=== PATIENT | male | born 1995 | race Caucasian/White ===

== ENCOUNTER 2023-09-27 13:56 | Outpatient (CLI) | payer OTHER, SELFPAY ==
--- NOTE | 2023-09-28 10:25 | WPDPFTINT ---
PFT Procedure Performed PFT Procedure Performed Spirometry with Pre/Post Bronchodilator Plethysmography (Lung Vol) Diffusing Cap (DLCO) Flow Vol Loop PFT Interpretation Lung volumes were measured with the body plethysmography method. Lung volumes are unremarkable. Spirometry showed normal expiratory flow rates and a normal FEV1 to FVC ratio of 90%. Following administration of a bronchodilator there was no significant increase in the expiratory flow rates. Lung diffusion capacity is within the normal range at 85% predicted. The flow-volume loop is unremarkable. Impression: Spirometry, lung volumes, and lung diffusion capacity all within the normal range.
== END 2023-09-27 13:57 | disposition home or self-care (01) ==
LOC: ANHPFT 13:57
PROVIDERS: PCP Family Medicine
DX: J45.909 Unspecified asthma, uncomplicated (principal)
CPT/HCPCS: 94060; 94726; 94729

== ENCOUNTER 2023-10-10 12:44 | Outpatient (CLI) | payer OTHER, SELFPAY ==
--- NOTE | 2023-10-10 16:15 | P.METCHAL_ITS ---
Methacholine Procedure Perform Procedure Performed Methacholine Challenge Methacholine Challenge Methacholine Challenge: This is a methacholine challenge test. The test was performed and interpreted in accordance with the 2017 ERS technical standard, endorsed by the [employer], using the GLI 2012 reference equations. Testing was performed with increasing doses of nebulized methacholine following a quadrupling dosage protocol. The methacholine dose was delivered via the [employer] nebulizer using a 1-minutes tidal breathing protocol. The best post-methacholine FEV1 values were used to determine the change from the post diluent FEV1. The delivered dose of methacholine was used to calculate the provocative dose causing a 20% fall in FEV1 (PD 20). Findings: Baseline FEV1 4.08 L, 95% predicted. Post diluent FEV1 4.25 L Post 1.81 mcg methacholine FEV1 4.13 L, decreased 3% Post 7.26 mcg methacholine FEV1 4.20 L, decreased 1% Post 29.03 mcg methacholine FEV1 4.17 L, decreased 2% Post 116.1 mcg methacholine FEV1 4.13 L, decreased 3% Post 464.4 mcg methacholine FEV1 3.96 L, decreased 7% Post albuterol nebulization FEV1 4.12 L Impression: The PD20 is > 400 mcg which is categorized as normal airway hyperresponsiveness. There are no prior methacholine challenge studies for comparison
== END 2023-10-10 12:45 | disposition home or self-care (01) ==
LOC: ANHPFT 12:46
PROVIDERS: PCP Family Medicine
DX: R05.3 Chronic cough (principal)
CPT/HCPCS: 94070; J7674